=== PATIENT | male | born 1985 | race Caucasian/White ===

== ENCOUNTER 2024-07-24 21:13 | Emergency (ER) | payer OTHER, SELFPAY ==
[2024-07-24 21:16] VITALS: BP 142/80; PULSE 84; RESP 20; TEMP 36.6; O2SAT 99; BMI 32.2
[2024-07-25 00:07] LABS: Add Manual Diff / Slide Review NO; Basophils Absolute Auto 0 /uL (0-100); Basophils Percent Auto 0.5 % (0-2); Eosinophils Absolute Auto 200 /uL (0-450); Eosinophils Percent Auto 3.6 % (2-4); Hemoglobin 14.5 g/dL (13.5-17.5); Lymphocytes Absolute Auto 1900 /uL (1100-4500); Lymphocytes Percent Auto 33.8 % (25-40); Mean Corpuscular HGB Conc 33.8 % (30-36); Mean Corpuscular Volume 82.9 fL (80-100); Monocytes Absolute Auto 400 /uL (0-900); Neutrophils Absolute Auto 3200 /uL (1500-7000); Neutrophils Percent Auto 55.1 % (50-75); Platelet Count 242 X10^3/uL (150-400); Red Blood Cell Count 5.19 X10^6/uL (4.5-5.9); Red Cell Distribution Width 13.7 % (11.6-14.8); White Blood Cell Count 5.8 X10^3/uL (4.5-11.0)
[2024-07-25 00:07] LABS: Ur Creatinine Normal (Normal); Ur Specific Gravity Normal (Normal); Urine Amphetamines Negative (Negative); Urine Barbiturates Negative (Negative); Urine Benzodiazepines Negative (Negative); Urine Cocaine Negative (Negative); Urine MDMA Negative (Negative); Urine Methadone Negative (Negative); Urine Opiates Negative (Negative); Urine Oxycodone Negative (Negative); Urine Phencyclidine Negative (Negative); Urine THC Negative (Negative); Urine Tricyclic Antidepressant Negative (Negative); Urine pH Normal (Normal)
[2024-07-25 00:16] LABS: Acetaminophen < 10 ug/mL (10-30); Alanine Aminotransferase 27 IU/L (<50); Albumin 4.7 g/dL (3.5-5.0); Albumin Globulin Ratio 1.4 (1.0-2.8); Alkaline Phosphatase 63 U/L (38-126); Aspartate Aminotransferase 26 IU/L (17-59); BUN Creatinine Ratio 21.4 (6-22); Bilirubin Total 0.5 mg/dL (0.2-1.3); Blood Urea Nitrogen 25 mg/dL (9-20); Calcium 9.8 mg/dL (8.4-10.2); Carbon Dioxide 28 mmol/L (22-32); Chloride 103 mmol/L (98-107); Estimated Glomerular Filt Rate > 60 mL/min (>60); Ethanol (ETOH) < 10 mg/dL (<10); Globulin 3.4 g/dL (1.7-4.1); Glucose 100 mg/dL (70-99); HEMOLYSIS < 15 (0-50); Salicylate < 1.0 mg/dL (<20); Sodium 139 mmol/L (137-145); Total Protein 8.1 g/dL (6.3-8.2)
[2024-07-25 00:47] LABS: TSH w/ Reflex to FT4 2.69 uIU/mL (0.47-4.68)
--- NOTE | 2024-07-25 02:23 | ED_ITS ---
HPI - Psych General Chief Complaint: Psychiatric Symptoms Stated Complaint: mental health Time Seen by Provider: 07/24/24 23:08 Source: patient Mode of arrival: Ambulatory History of Present Illness HPI Narrative: 39-year-old gentleman history of suicidal ideation back in 2016 [place] [employer] transferred to [facility] inpatient psychiatric [facility] for a week where he was treated for suicidal ideation. He then had medical clearance to return back to work with no issues diagnosed with adjustment disorder presents today for evaluation having suicidal thoughts potentially harming himself but states he has a and 3 kids to live for but wanted to just have few days off work to take a break. Patient states he has too much to live for but feels he is under stress and being picked on at this time. He denies suicidal plan or homicidal ideation hearing voices or seeing things other than what is stated 14 point review of system is negative Related Data Previous Rx's Medication Instructions Recorded tadalafil 10 mg tablet (Cialis) 10 mg PO DAILY PRN sexual activity 10/23/23 #10 tabs Allergies Allergy/AdvReac Type Severity Reaction Status Date / Time cat dander Allergy Unverified 05/05/24 16:02 Sulfa (Sulfonamide Allergy Unverified 05/05/24 16:02 Antibiotics) Review of Systems Review of Systems ROS Unobtainable: All systems reviewed & are unremarkable except as noted in HPI and below Patient History Medical History (Updated 07/25/24 @ 02:57 by Victor Hugo Garcia DO) Abnormal semen analysis Erectile dysfunction Chronic prostatitis Infertility counseling Hx of neurological disease Hx of migraines History of depression Surgical History (Updated 10/23/23 @ 14:18 by Bentley Recinos MA) Hx of umbilical hernia repair Family History (Updated 10/23/23 @ 14:22 by Bentley Recinos MA) Grandfather Cancer Hyperlipidemia Mother Coronary artery disease Diabetes mellitus Kidney stones Thyroid disorder Migraines Hyperlipidemia Father Diabetes mellitus Hyperlipidemia Hypertension Sister Migraines Hyperlipidemia Grandmother Hyperlipidemia Other Congestive heart failure Social History (Updated 10/23/23 @ 14:23 by Bentley Recinos MA) marital status: number of children: 3 Smoking Status: Former smoker alcohol intake: never caffeine: Yes Smoking Status: Former smoker Exam Narrative Exam Narrative: GENERAL: [39] year old patient appears stated age. Well-developed patient, in mild distress. HEAD: Atraumatic. Normocephalic. EYES: Pupils equal round and reactive. Extraocular motions intact. No scleral icterus. No injection or drainage. NECK: Trachea midline. Non tender CARDIOVASCULAR: Regular rate and rhythm without murmurs, gallops, or rubs. RESPIRATORY: Clear to auscultation. Breath sounds equal bilaterally. No wheezes, rales, or rhonchi. GASTROINTESTINAL: Abdomen soft, non-tender, nondistended. EXTREMITIES: No edema or joint tenderness. BACK: Nontender without deformity or crepitance. No flank tenderness. NEURO: AOx3. SKIN: No rash or erythema of visible areas Initial Vital Signs Initial Vital Signs: Vital Signs Temperature 97.8 F 07/24/24 21:16 Pulse Rate 84 07/24/24 21:16 Respiratory Rate 20 07/24/24 21:16 Blood Pressure 142/80 H 07/24/24 21:16 Pulse Oximetry 99 07/24/24 21:16 Oxygen Delivery Method Room Air 07/24/24 21:16 Psych Appearance: grossly normal Mental Status: mental status grossly normal Speech and Movement: speech and movement normal Mood: congruent mood Affect: sad Attitude: cooperative Thought Process: normal Thought Content: normal Judgment: fair Course Orders Ordered: ED Orders 07/24/24 23:36 Urine Drug Screen, Rapid Stat 07/24/24 23:39 Consult to MENTAL HEALTH CASE MANAGER - Ems Manager Routine 07/24/24 23:55 Acetaminophen Stat Complete Blood Count AUTO DIFF Stat Comprehensive Metabolic Panel Stat Ethanol (ETOH) Stat Salicylate Stat TSH w/ Reflex to FT4 Stat Vital Signs Vital signs: Vital Signs - 8 hr 07/24/24 21:16 Temperature 97.8 F Pulse Rate 84 Respiratory Rate 20 Blood Pressure 142/80 H Pulse Oximetry 99 Oxygen Delivery Method Room Air MDM - Psych Differential Diagnosis Differential diagnosis: Likely acute psychosis, suicidal ideation, depression and acute anxiety Condition is:: Resolving Lab Data 07/24/24 23:55 07/24/24 23:55 Labs: Lab Results 07/24/24 07/24/24 Range/Units 23:36 23:55 WBC 5.8 (4.5-11.0) X10^3/uL RBC 5.19 (4.5-5.9) X10^6/uL Hgb 14.5 (13.5-17.5) g/dL Hct 43.0 (41-53) % MCV 82.9 (80-100) fL MCH 28.0 (26-34) PG MCHC 33.8 (30-36) % RDW 13.7 (11.6-14.8) % Plt Count 242 (150-400) X10^3/uL Neut % (Auto) 55.1 (50-75) % Lymph % (Auto) 33.8 (25-40) % [place] % (Auto) 7.0 (3-14) % Eos % (Auto) 3.6 (2-4) % Baso % (Auto) 0.5 (0-2) % Neut # (Auto) 3200 (5741-8182) /uL Lymph # (Auto) 1900 (1853-2846) /uL [place] # (Auto) 400 (0-900) /uL Eos # (Auto) 200 (0-450) /uL Baso # (Auto) 0 (0-100) /uL Sodium 139 (137-145) mmol/L Potassium 4.0 (3.4-5.1) mmol/L Chloride 103 (98-107) mmol/L Carbon Dioxide 28 (22-32) mmol/L BUN 25 H (9-20) mg/dL Creatinine 1.17 (0.66-1.25) mg/dL Estimated GFR > 60 (>60) mL/min BUN/Creatinine Ratio 21.4 (6-22) Glucose 100 H (70-99) mg/dL Calcium 9.8 (8.4-10.2) mg/dL Total Bilirubin 0.5 (0.2-1.3) mg/dL AST 26 (17-59) IU/L ALT 27 (<50) IU/L Alkaline Phosphatase 63 (38-126) U/L Total Protein 8.1 (6.3-8.2) g/dL Albumin 4.7 (3.5-5.0) g/dL Globulin 3.4 (1.7-4.1) g/dL Albumin/Globulin Ratio 1.4 (1.0-2.8) TSH 2.69 (0.47-4.68) uIU/mL Salicylates < 1.0 (<20) mg/dL U Opiates 300ng/mL cut Negative (Negative) Ur Oxycodone Screen Negative (Negative) Urine Methadone Screen Negative (Negative) Acetaminophen < 10 (10-30) ug/mL Ur Barbiturates Screen Negative (Negative) U Tricyclic Antidepress Negative (Negative) Ur Phencyclidine Scrn Negative (Negative) Ur Amphetamines Screen Negative (Negative) U Methamphetamines Scrn Negative (Negative) Ur MDMA Scrn (Ecstasy) Negative (Negative) U Benzodiazepines Scrn Negative (Negative) Urine Cocaine Screen Negative (Negative) U Marijuana (THC) Screen Negative (Negative) Urine pH Normal (Normal) Urine Specific [place] Normal (Normal) Ethyl Alcohol < 10 (<10) mg/dL Ur Creatinine Normal (Normal) Urine Dip Bedside Urine Glucose Negative Bedside Urine Bilirubin - Negative Bedside Urine Ketone - Negative Urine Specific [place] 1.030 Bedside Urine Occult Blood - Negative Bedside Urine pH 6.0 Bedside Urine Protein - Negative Bedside Urine Urobilinogen - Negative Bedside Urine Nitrite - Negative Bedside Urine Leukocytes - Negative Esterase MDM Narrative Medical decision making narrative: All lab work, vital signs, nurse triage note, medication list, and previous ER visits reviewed. Patient reinforces that he has too much to live for and does not have active suicidal plan at this time and he just needs a temporary break from work. [place] which he will be following up on. Differential diagnosis include anxiety depression acute stress disorder adjustment disorder and suicidal ideation Discharge Plan Departure Patient Disposition: Home Clinical Impression: Acute stress disorder Instructions: Acute Stress Disorder Activity Restrictions/Additional Instructions: Return with new or worsening symptoms. Follow up with psychiatric appointment on . No work for next 3 days. Prescriptions: No Action tadalafil [Cialis] 10 mg tablet 10 mg PO DAILY PRN (Reason: sexual activity) Qty: 10 12RF Rx Instructions: administer approximately 30min before sexual activity; do not use more than 1 dose per 24hrs Referrals: Roshni Girard ARNP [Primary Care Provider] - Stand Alone Forms: Patient Portal/API/Survey
[2024-07-25 03:19] VITALS: BP 131/81; PULSE 79; RESP 16; O2SAT 96
== END 2024-07-25 03:19 | disposition home or self-care (01) ==
PROVIDERS: Emergency Provider Family Medicine; PCP Nurse Practitioner Family
DX: F43.0 Acute stress reaction (principal)
CPT/HCPCS: 80053; 80305; 80320; 80329; 81003; 84443; 85025; 99283; G0480

== ENCOUNTER 2024-07-27 14:55 | Emergency (ER) | payer OTHER, SELFPAY ==
[2024-07-27 14:58] VITALS: BP 121/70; PULSE 82; RESP 18; TEMP 36.8; O2SAT 98; BMI 32.2
--- NOTE | 2024-07-27 18:09 | ED.PSYCH ---
HPI - Psych General Chief Complaint: Psychiatric Symptoms Stated Complaint: Mental health check Time Seen by Provider: 07/27/24 18:09 Source: patient Mode of arrival: Ambulatory History of Present Illness HPI Narrative: 39-year-old male with a history suicide ideation in 2016, with history of inpatient psych presenting from home for evaluation of increased anxiety. He states he denies any actual suicidal or homicidal ideation but has passive/intermittent thoughts of hurting himself, however he states that he would ?never end his life and leave his kids without a father however he states that he has been feeling bullied at work and states that he does not feel like he wants to work. He states he does have a behavioral health appointment today, mental health appointment on Thursday, states that he was here a few days ago with similar symptoms but was discharged home. He was medically cleared at that time. He denies any other symptoms at this time Related Data Previous Rx's Medication Instructions Recorded tadalafil 10 mg tablet (Cialis) 10 mg PO DAILY PRN sexual activity 10/23/23 #10 tabs Allergies Allergy/AdvReac Type Severity Reaction Status Date / Time cat dander Allergy Unverified 05/05/24 16:02 Sulfa (Sulfonamide Allergy Unverified 05/05/24 16:02 Antibiotics) Review of Systems Review of Systems Narrative: General: Denies fever, chills, weight loss HEENT: Denies headache, eye drainage, eye irritation, head trauma, sore throat, voice change Cardiovascular: Denies any chest pain, palpitations, tachycardia Respiratory: Denies any shortness of breath, cough, wheeze, stridor GI/: Denies any abdominal pain, nausea, vomiting, diarrhea, bright red blood per rectum, melanotic stools, urinary frequency, urinary retention, dysuria, hematuria MSK: Denies any joint pain, muscle pains, swelling Skin: Denies any rashes, lesions, discoloration Neuro: Denies any headache, lightheadedness, dizziness, fainting, weakness Psych: Positive increased anxiety, Denies SI/HI Patient History Medical History (Updated 07/27/24 @ 20:26 by Tung Quiñones DO) Abnormal semen analysis Erectile dysfunction Chronic prostatitis Infertility counseling Hx of neurological disease Hx of migraines History of depression Surgical History (Updated 10/23/23 @ 14:18 by Bentley Recinos MA) Hx of umbilical hernia repair Family History (Updated 10/23/23 @ 14:22 by Bentley Recinos MA) Grandfather Cancer Hyperlipidemia Mother Coronary artery disease Diabetes mellitus Kidney stones Thyroid disorder Migraines Hyperlipidemia Father Diabetes mellitus Hyperlipidemia Hypertension Sister Migraines Hyperlipidemia Grandmother Hyperlipidemia Other Congestive heart failure Social History (Updated 10/23/23 @ 14:23 by Bentley Recinos MA) marital status: number of children: 3 alcohol intake: never caffeine: Yes Exam Narrative Exam Narrative: General: Cooperative, well-developed, not in acute distress HEENT: Normocephalic, atraumatic, PERRLA, normal sclera, eyelids normal Neck: Active full range of motion, atraumatic Chest: Normal to inspection, negative crepitus, no overlying erythema ecchymosis Respiratory: Normal respiratory effort, not in acute respiratory distress, clear to auscultation bilaterally negative cough, wheeze, tachypnea, rhonchi, rales Cardiology: Regular rate rhythm negative gallop, murmur, rubs GI/: No tenderness to palpation, soft, non rigid, normal to inspection, exam deferred MSK: Full active range of motion in all 4 extremities, atraumatic, no tenderness to palpation of any bony prominences Skin: No rashes or lesions noted Neuro: Alert awake oriented x3, moves all 4 extremities spontaneously, cranial nerves intact, able to answer all questions appropriately follows commands appropriately Psych: Cooperative, negative suicidal or homicidal ideations, anxious, Initial Vital Signs Initial Vital Signs: Vital Signs Temperature 98.3 F 07/27/24 14:58 Pulse Rate 82 07/27/24 14:58 Respiratory Rate 18 07/27/24 14:58 Blood Pressure 121/70 07/27/24 14:58 Pulse Oximetry 98 07/27/24 14:58 Oxygen Delivery Method Room Air 07/27/24 14:58 Course Orders Ordered: ED Orders 07/27/24 19:16 Acetaminophen Stat ETOH [Ethanol (ETOH)] Stat Salicylate Stat 07/27/24 19:25 Urine Drug Screen, Rapid Stat Vital Signs Vital signs: Vital Signs - 8 hr 07/27/24 14:58 Temperature 98.3 F Pulse Rate 82 Respiratory Rate 18 Blood Pressure 121/70 Pulse Oximetry 98 Oxygen Delivery Method Room Air MDM - Psych Differential Diagnosis Differential diagnosis: Likely acute psychosis, suicidal ideation, bipolar disorder, depression and acute anxiety Lab Data Labs: Lab Results 07/27/24 07/27/24 Range/Units 19:16 19:25 Salicylates < 1.0 (<20) mg/dL U Opiates 300ng/mL cut Negative (Negative) Ur Oxycodone Screen Negative (Negative) Urine Methadone Screen Negative (Negative) Acetaminophen < 10 (10-30) ug/mL Ur Barbiturates Screen Negative (Negative) U Tricyclic Antidepress Negative (Negative) Ur Phencyclidine Scrn Negative (Negative) Ur Amphetamines Screen Negative (Negative) U Methamphetamines Scrn Negative (Negative) Ur MDMA Scrn (Ecstasy) Negative (Negative) U Benzodiazepines Scrn Negative (Negative) Urine Cocaine Screen Negative (Negative) U Marijuana (THC) Screen Negative (Negative) Urine pH Normal (Normal) Urine Specific [place] Normal (Normal) Ethyl Alcohol < 10 (<10) mg/dL Ur Creatinine Normal (Normal) MDM Narrative Medical decision making narrative: 39-year-old male with a past medical history of SI presenting for increased stress, patient was seen here recently for the same, does have a appointment with his behavioral health today, as well as mental health tomorrow, he states that he has just been feeling increased anxiety and afraid to go to work due to ?being bullied at work he also states that he has been having emotional outbursts towards his family, states he has an autistic son, he states that he does not like the way the he is acting. He denies any actual SI HI, however he states he has been having passive thoughts of hurting himself, however he states adamantly that ?I would never kill myself at leave my family without a father. Review of records does show patient was seen here on 07/25/2024 for same was medically cleared at that time. 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 He states that he would like to be placed somewhere 1837: Case was discussed with [facility], they state the patient needs to be medically cleared and to fax over once he is, they state that they have beds once they receive all the information they will call back to discuss transfer, this was instructed to the patient he understands agrees to this plan 2129: Patient medically cleared, patient updated understands and agrees with this plan of still going voluntary to [facility] 2132: discussed case with Andreas Arnold at [facility], patient has been accepted and will be transferred, patient understands and agrees with the plan Discharge Plan Departure Patient Disposition: Xfer Psychiatric Hosp Clinical Impression: Acute reaction to stress Prescriptions: No Action tadalafil [Cialis] 10 mg tablet 10 mg PO DAILY PRN (Reason: sexual activity) Qty: 10 12RF Rx Instructions: administer approximately 30min before sexual activity; do not use more than 1 dose per 24hrs Referrals: Roshni Girard ARNP [Primary Care Provider] -
--- NOTE | 2024-07-27 18:51 | PC.NURSE ---
Addendum entered by Amber Herrera R.N. 07/27/24 18:56: Pt reports he feels he will need to be evaluated in front of a medical board. Pt expects he will need to be medically retired. States he has 2 years left to nursing home and states he does not believe he can make it to normal nursing home. Pt ambulates w/o issue. Thought process clear. Articulates well. Addendum entered by Amber Herrera R.N. 07/27/24 18:54: Pt well groomed. Well fed. No appetite changes. Original Note: Pt reports new boss came in in November. Pt states he has been under increase stress and getting yelled at. Pt states he cannot take the stress and name calling. Pt reports he was seen in 2016 for something similar; states he was changed into a different job. Not started on meds. Has not been consistent with therapy. States he has another appointment with mental health counselor on Thursday. Reports having multiple small children. States is recovering from post op surgery for ACL (5 weeks post op). No direct plan of SI; denies HI.
[2024-07-27 19:40] LABS: Ur Creatinine Normal (Normal); Ur Specific Gravity Normal (Normal); Urine pH Normal (Normal)
[2024-07-27 19:42] LABS: Urine Amphetamines Negative (Negative); Urine Barbiturates Negative (Negative); Urine Benzodiazepines Negative (Negative); Urine Cocaine Negative (Negative); Urine MDMA Negative (Negative); Urine Methadone Negative (Negative); Urine Opiates Negative (Negative); Urine Oxycodone Negative (Negative); Urine Phencyclidine Negative (Negative); Urine THC Negative (Negative); Urine Tricyclic Antidepressant Negative (Negative)
[2024-07-27 19:43] LABS: Acetaminophen < 10 ug/mL (10-30); Ethanol (ETOH) < 10 mg/dL (<10); Salicylate < 1.0 mg/dL (<20)
[2024-07-27] MEDS: IBUPROFEN 400 MG TABLET 800 MG PO (22:36)
[2024-07-27 23:22] VITALS: BP 120/68; PULSE 80; RESP 17; O2SAT 99
== END 2024-07-27 23:24 ==
PROVIDERS: Emergency Provider Student in an Organized Health Care Education/Training Program; PCP Nurse Practitioner Family
DX: F43.0 Acute stress reaction (principal)
CPT/HCPCS: 36415; 80305; 80320; 80329; 99284; G0480